=== PATIENT | female | born 1950 | race African-American/Black ===

== ENCOUNTER 2017-12-15 18:55 | Inpatient (IN) ==
[2017-12-15] MEDS ORDERED: SODIUM CHLORIDE 0.9% 500 ML IV STA (21:01)
[2017-12-15] MEDS ORDERED: PANTOPRAZOLE 40 MG VIAL IV STA (21:01)
[2017-12-15] MEDS ORDERED: ONDANSETRON 4 MG/2 ML VIAL IV STA (21:01)
[2017-12-15] MEDS ORDERED: ALUM/MAG/SIMETH/LIDO VISC 1:1 30 ML BOTTLE PO STA (21:01)
[2017-12-15] MEDS ORDERED: MORPHINE 4 MG/1 ML VIAL IV STA (21:01)
[2017-12-15 21:34] LABS: Basophils % 0.1 % (0.0-0.8); Eosinophils % 0.2 % (0.00-10.9); Hematocrit 34.3 VOL% (35.7-47.0); Hemoglobin 11.7 GM/DL (12.0-16.0); Immature Granulocytes % 0.5 %; Immature Granulocytes Absolute 0.04 #; Lymphocytes # 0.7 10*3/uL (1.4-4.0); Lymphocytes % 8.8 % (21.3-54.2); Mean Corpuscular HGB Conc 34.1 GM/DL (32-36); Mean Corpuscular Hemoglobin 31 PG (27-34); Mean Corpuscular Volume 91.7 FL (87-102); Mean Platelet Volume 11.2 FL (9.6-12.0); Monocytes # 0.5 10*3/uL (0.11-0.8); Monocytes % 6.3 % (1.7-12.7); Neutrophils # 7.1 10*3/uL (1.4-7.4); Neutrophils % 84.1 % (38.7-73.9); Platelet Count 113 T/CUMM (130-400); Red Blood Count 3.74 MC/CUMM (3.8-5.5); Red Cell Distribution Width 13.8 % (9.3-17.3); White Blood Count 8.4 T/CUMM (4-12)
[2017-12-15 21:53] LABS: Lactic Acid 0.9 MMOL/L (0.4-2.0)
[2017-12-15 21:56] LABS: Alanine Aminotransferase 419 U/L (13-56); Alkaline Phosphatase 318 U/L (45-117); Amylase 53 U/L (25-115); Aspartate Amino Transferase 189 U/L (0-37); Blood Urea Nitrogen 19 MG/DL (7-18); Calcium 8.9 MG/DL (8.5-10.1); Glucose 110 MG/DL (74-106); Osmolality,Calculated 281.4 MOS/KG (273-304); Potassium 2.7 MMOL/L (3.5-5.1); Sodium 140 MMOL/L (136-145); Total Protein 7.8 G/DL (6.4-8.3)
[2017-12-15] MEDS ORDERED: POTASSIUM CHLORIDE 20 MEQ TABLET PO STA (22:06)
[2017-12-15] MEDS ORDERED: MAGNESIUM SULF RIDER 2 GM in PREMIX 1 EACH IV STA (22:06)
[2017-12-15] MEDS ORDERED: ZALEPLON 5 MG CAPSULE PO PRN (23:21)
[2017-12-15] MEDS ORDERED: BISACODYL 5 MG TABLET PO PRN (23:21)
[2017-12-15] MEDS ORDERED: ACETAMINOPHEN 500 MG TABLET PO PRN (23:28)
[2017-12-15] MEDS ORDERED: POTASSIUM CHLORIDE 20 MEQ TABLET PO ONE (23:30)
[2017-12-16] MEDS: LACTATED RINGERS 1,000 ML IV SCH ×3 (02:09→21:57)
[2017-12-16 02:34] LABS: Basophils % 0.1 % (0.0-0.8); Bilirubin,Total 0.8 MG/DL (0.2-1.0); Calcium 8.4 MG/DL (8.5-10.1); Eosinophils # 0.1 10*3/uL (0.0-0.87); Hematocrit 34.4 VOL% (35.7-47.0); Hemoglobin 11.9 GM/DL (12.0-16.0); Immature Granulocytes % 1.2 %; Immature Granulocytes Absolute 0.09 #; Lymphocytes # 1.5 10*3/uL (1.4-4.0); Lymphocytes % 19.1 % (21.3-54.2); Mean Corpuscular HGB Conc 34.6 GM/DL (32-36); Mean Corpuscular Hemoglobin 31 PG (27-34); Mean Corpuscular Volume 90.5 FL (87-102); Mean Platelet Volume 11.6 FL (9.6-12.0); Monocytes # 0.6 10*3/uL (0.11-0.8); NRBC # 0.02 10*3/uL; Neutrophils # 5.4 10*3/uL (1.4-7.4); Neutrophils % 70.6 % (38.7-73.9); Osmolality,Calculated 279.4 MOS/KG (273-304); Platelet Count 118 T/CUMM (130-400); Potassium 3.2 MMOL/L (3.5-5.1); Red Cell Distribution Width 13.8 % (9.3-17.3); Risk Ratio 2.78; Total Protein 7.4 G/DL (6.4-8.3); VLDL CHOLESTEROL 7.4 MG/DL; White Blood Count 7.7 T/CUMM (4-12)
[2017-12-16] MEDS: HEPARIN 5,000 UNIT/1 ML VIAL SUBCUT SCH ×3 (02:37→17:15)
[2017-12-16 03:48] LABS: Hepatitis B Core Ab Result Negative (Negative)
[2017-12-16 03:50] LABS: Hepatitis A Ab IgM Quant 0.16 Index; Hepatitis A Ab IgM Result Negative (Negative); Hepatitis B Core IgM Result Negative (Negative); Hepatitis B Surface Ag Quant 0.14 Index; Hepatitis B Surface Ag Result Negative (Negative); Hepatitis C Virus Ab Quant 0.15 Index; Hepatitis C Virus Ab Result Negative (Negative)
[2017-12-16] MEDS ORDERED: ENOXAPARIN 40 MG/0.4 ML SYRINGE SUBCUT SCH (09:00)
[2017-12-16] MEDS: PANTOPRAZOLE 40 MG TABLET PO SCH (10:30)
[2017-12-16] MEDS: ESTRADIOL 1 MG TABLET PO SCH (10:30)
[2017-12-16] MEDS: POTASSIUM CHLORIDE 20 MEQ TABLET PO PRN ×2 (15:20→17:15)
[2017-12-17] MEDS: HEPARIN 5,000 UNIT/1 ML VIAL SUBCUT SCH ×3 (01:45→18:18)
[2017-12-17] MEDS ORDERED: cefOXitin 2,000 MG in SYRINGE 1 EACH IV ONE (07:24)
[2017-12-17] MEDS: LACTATED RINGERS 1,000 ML IV SCH ×2 (08:00→21:38)
[2017-12-17] MEDS ORDERED: TISSUE ADHESIVE 1 EACH APPLICATOR TOP ONE (08:35)
[2017-12-17] MEDS ORDERED: LIDOCAINE 1%/EPI INJ 20 ML VIAL ONE (08:35)
[2017-12-17] MEDS ORDERED: BUPIVACAINE MPF 0.25% 30 ML VIAL ONE (08:35)
[2017-12-17 09:24] LABS: Albumin 2.7 G/DL (3.4-5.0); Bilirubin,Direct 0.25 MG/DL (0.0-0.20); Bilirubin,Indirect 0.3 MG/DL (0.0-1.0); Bilirubin,Total 0.5 MG/DL (0.2-1.0); Calcium 8.2 MG/DL (8.5-10.1); Osmolality,Calculated 282.1 MOS/KG (273-304); Total Protein 6.7 G/DL (6.4-8.3)
[2017-12-17 10:10] LABS: Eosinophils # 0.2 10*3/uL (0.0-0.87); Eosinophils % 3.4 % (0.00-10.9); Hematocrit 33.3 VOL% (35.7-47.0); Hemoglobin 11.3 GM/DL (12.0-16.0); Immature Granulocytes % 0.9 %; Immature Granulocytes Absolute 0.04 #; Lymphocytes # 1.6 10*3/uL (1.4-4.0); Lymphocytes % 36.5 % (21.3-54.2); Mean Corpuscular HGB Conc 33.9 GM/DL (32-36); Mean Corpuscular Hemoglobin 32 PG (27-34); Mean Corpuscular Volume 92.8 FL (87-102); Mean Platelet Volume 12.1 FL (9.6-12.0); Monocytes # 0.5 10*3/uL (0.11-0.8); Monocytes % 10.3 % (1.7-12.7); Neutrophils # 2.2 10*3/uL (1.4-7.4); Neutrophils % 48.9 % (38.7-73.9); Platelet Count 101 T/CUMM (130-400); Red Blood Count 3.59 MC/CUMM (3.8-5.5); Red Cell Distribution Width 14.3 % (9.3-17.3); White Blood Count 4.5 T/CUMM (4-12)
[2017-12-17] MEDS ORDERED: ONDANSETRON 4 MG/2 ML VIAL IV PRN (11:28)
[2017-12-17] MEDS ORDERED: LACTATED RINGERS 1,000 ML IV SCH (11:30)
[2017-12-17] MEDS ORDERED: MORPHINE 10 MG/1 ML VIAL ONE (11:34)
[2017-12-17] MEDS ORDERED: ONDANSETRON 4 MG/2 ML VIAL ONE ×2 (11:34→12:33)
[2017-12-17] MEDS: MORPHINE 10 MG/1 ML VIAL IV PRN ×3 (11:38→11:54)
[2017-12-17] MEDS ORDERED: PROPOFOL 200 MG/20 ML VIAL IV ONE (12:32)
[2017-12-17] MEDS ORDERED: SEVOFLURANE 1 UNIT/15 MINUTE INH ONE (12:33)
[2017-12-17] MEDS ORDERED: GLYCOPYRROLATE 0.4 MG/2 ML VIAL ONE (12:33)
[2017-12-17] MEDS ORDERED: fentaNYL 100 MCG/2 ML VIAL ONE ×2 (12:33→12:34)
[2017-12-17] MEDS ORDERED: ROCURONIUM 100 MG/10 ML VIAL IV ONE (12:33)
[2017-12-17] MEDS ORDERED: MIDAZOLAM 2 MG/2 ML VIAL ONE (12:33)
[2017-12-17] MEDS ORDERED: NEOSTIGMINE 10 MG/10 ML VIAL ONE (12:33)
[2017-12-17] MEDS ORDERED: HYDROCORTISONE 100 MG VIAL ONE (12:33)
[2017-12-17] MEDS ORDERED: LACTATED RINGERS 1,000 ML IV ONE (12:34)
[2017-12-17] MEDS: PANTOPRAZOLE 40 MG TABLET PO SCH (14:19)
[2017-12-17] MEDS: ESTRADIOL 1 MG TABLET PO SCH (14:19)
[2017-12-17] MEDS: MORPHINE 4 MG/1 ML VIAL IV PRN (16:26)
[2017-12-17] MEDS ORDERED: DOCUSATE SODIUM 100 MG CAPSULE PO PRN (20:10)
[2017-12-18] MEDS: HEPARIN 5,000 UNIT/1 ML VIAL SUBCUT SCH ×3 (01:23→17:20)
[2017-12-18] MEDS: LACTATED RINGERS 1,000 ML IV SCH ×2 (03:38→14:24)
[2017-12-18 06:10] LABS: Basophils % 0.2 % (0.0-0.8); Eosinophils # 0.1 10*3/uL (0.0-0.87); Eosinophils % 0.9 % (0.00-10.9); Hematocrit 32.9 VOL% (35.7-47.0); Hemoglobin 11.6 GM/DL (12.0-16.0); Immature Granulocytes % 0.6 %; Immature Granulocytes Absolute 0.04 #; Lymphocytes # 1.6 10*3/uL (1.4-4.0); Lymphocytes % 24.5 % (21.3-54.2); Mean Corpuscular HGB Conc 35.3 GM/DL (32-36); Mean Corpuscular Hemoglobin 32 PG (27-34); Mean Corpuscular Volume 91.4 FL (87-102); Mean Platelet Volume 12.1 FL (9.6-12.0); Monocytes # 0.7 10*3/uL (0.11-0.8); Monocytes % 10.2 % (1.7-12.7); Neutrophils # 4.2 10*3/uL (1.4-7.4); Neutrophils % 63.6 % (38.7-73.9); Platelet Count 115 T/CUMM (130-400); Red Cell Distribution Width 14.2 % (9.3-17.3); White Blood Count 6.6 T/CUMM (4-12)
[2017-12-18 06:23] LABS: PT Patient Result 10.1 SECS; Partial Thromboplastin Time 31.1 SECS (0-40)
[2017-12-18 06:25] LABS: Albumin 2.6 G/DL (3.4-5.0); Albumin 2.9 G/DL (3.4-5.0); Bilirubin,Direct 1.01 MG/DL (0.0-0.20); Bilirubin,Indirect 0.7 MG/DL (0.0-1.0); Bilirubin,Total 1.6 MG/DL (0.2-1.0); Bilirubin,Total 1.7 MG/DL (0.2-1.0); Calcium 8.2 MG/DL (8.5-10.1); Calcium 8.5 MG/DL (8.5-10.1); Potassium 3.1 MMOL/L (3.5-5.1); Potassium 3.2 MMOL/L (3.5-5.1); Total Protein 7.2 G/DL (6.4-8.3)
[2017-12-18] MEDS: ONDANSETRON 4 MG/2 ML VIAL IV PRN ×2 (06:29→12:12)
[2017-12-18] MEDS ORDERED: PROMETHAZINE 25 MG TABLET PO PRN (09:25)
[2017-12-18] MEDS ORDERED: PROMETHAZINE 25 MG/1 ML VIAL IM PRN (09:25)
[2017-12-18] MEDS ORDERED: POTASSIUM CHLORIDE 20 MEQ TABLET PO ONE (10:10)
[2017-12-18] MEDS: PANTOPRAZOLE 40 MG TABLET PO SCH (12:10)
[2017-12-18] MEDS: ESTRADIOL 1 MG TABLET PO SCH (12:10)
[2017-12-18] MEDS: MORPHINE 4 MG/1 ML VIAL IV PRN ×2 (12:11→17:20)
[2017-12-18] MEDS: TRIAMTERENE/HCTZ 37.5-25 MG CAPSULE PO SCH (12:11)
[2017-12-19] MEDS: LACTATED RINGERS 1,000 ML IV SCH ×4 (01:40→23:20)
[2017-12-19 07:28] LABS: Basophils % 0.2 % (0.0-0.8); Eosinophils # 0.1 10*3/uL (0.0-0.87); Eosinophils % 1.9 % (0.00-10.9); Hematocrit 32.8 VOL% (35.7-47.0); Hemoglobin 11.2 GM/DL (12.0-16.0); Immature Granulocytes % 1.3 %; Immature Granulocytes Absolute 0.07 #; Lymphocytes # 1.1 10*3/uL (1.4-4.0); Mean Corpuscular HGB Conc 34.1 GM/DL (32-36); Mean Corpuscular Hemoglobin 31 PG (27-34); Mean Corpuscular Volume 91.6 FL (87-102); Mean Platelet Volume 11.5 FL (9.6-12.0); Monocytes # 0.6 10*3/uL (0.11-0.8); Monocytes % 10.7 % (1.7-12.7); Neutrophils # 3.5 10*3/uL (1.4-7.4); Neutrophils % 65.9 % (38.7-73.9); Platelet Count 114 T/CUMM (130-400); Red Blood Count 3.58 MC/CUMM (3.8-5.5); Red Cell Distribution Width 14.6 % (9.3-17.3); White Blood Count 5.3 T/CUMM (4-12)
[2017-12-19 08:09] LABS: Albumin 2.7 G/DL (3.4-5.0); Bilirubin,Total 4.3 MG/DL (0.2-1.0); Calcium 8.1 MG/DL (8.5-10.1); Osmolality,Calculated 272.7 MOS/KG (273-304); Potassium 3.8 MMOL/L (3.5-5.1); Total Protein 6.9 G/DL (6.4-8.3)
[2017-12-19] MEDS ORDERED: INDOMETHACIN SUPP 50 MG SUPP RECTAL ONE (08:47)
[2017-12-19 09:17] LABS: PT Patient Result 10.3 SECS
[2017-12-19] MEDS ORDERED: SEVOFLURANE 1 UNIT/15 MINUTE INH ONE (12:34)
[2017-12-19] MEDS ORDERED: PROPOFOL 200 MG/20 ML VIAL IV ONE (12:49)
[2017-12-19] MEDS ORDERED: ALBUTEROL INHALER 8 GM INH ONE (12:49)
[2017-12-19] MEDS ORDERED: LIDOCAINE 100 MG/5 ML SYRINGE ONE (12:49)
[2017-12-19] MEDS ORDERED: SUCCINYLCHOLINE 200 MG/10 ML VIAL ONE (12:49)
[2017-12-19] MEDS: ESTRADIOL 1 MG TABLET PO SCH (13:39)
[2017-12-19] MEDS: TRIAMTERENE/HCTZ 37.5-25 MG CAPSULE PO SCH (13:39)
[2017-12-19] MEDS: PANTOPRAZOLE 40 MG TABLET PO SCH (13:40)
[2017-12-19] MEDS: POTASSIUM CHLORIDE 20 MEQ TABLET PO PRN (13:40)
[2017-12-20 07:20] VITALS: BP 99/56
[2017-12-20 08:41] LABS: Albumin 2.2 G/DL (3.4-5.0); Bilirubin,Total 1.1 MG/DL (0.2-1.0); Calcium 7.2 MG/DL (8.5-10.1); Osmolality,Calculated 280.3 MOS/KG (273-304); Potassium 3.8 MMOL/L (3.5-5.1); Total Protein 5.9 G/DL (6.4-8.3)
[2017-12-20] MEDS: LACTATED RINGERS 1,000 ML IV SCH (08:47)
[2017-12-20] MEDS: TRIAMTERENE/HCTZ 37.5-25 MG CAPSULE PO SCH (08:47)
[2017-12-20] MEDS: PANTOPRAZOLE 40 MG TABLET PO SCH (08:47)
[2017-12-20] MEDS: ESTRADIOL 1 MG TABLET PO SCH (08:47)
[2017-12-20 09:32] LABS: Basophils % 0.1 % (0.0-0.8); Eosinophils # 0.2 10*3/uL (0.0-0.87); Eosinophils % 1.5 % (0.00-10.9); Hematocrit 25.8 VOL% (35.7-47.0); Immature Granulocytes % 1.4 %; Immature Granulocytes Absolute 0.15 #; Lymphocytes # 1.1 10*3/uL (1.4-4.0); Mean Corpuscular HGB Conc 34.1 GM/DL (32-36); Mean Corpuscular Hemoglobin 32 PG (27-34); Mean Corpuscular Volume 93.1 FL (87-102); Monocytes # 0.6 10*3/uL (0.11-0.8); NRBC # 0.02 10*3/uL; Neutrophils # 8.9 10*3/uL (1.4-7.4); Platelet Count 65 T/CUMM (130-400); Red Blood Count 2.77 MC/CUMM (3.8-5.5); Red Cell Distribution Width 14.7 % (9.3-17.3); White Blood Count 10.9 T/CUMM (4-12)
[2017-12-20 09:41] LABS: Hemoglobin 8.8 GM/DL (12.0-16.0)
[2017-12-22] MEDS ORDERED: DEXAMETHASONE 4 MG TABLET PO SCH (09:00)
== END 2017-12-20 11:43 | disposition home or self-care (01) | DRG 418 ==
LOC: N.ED 18:55 → N.EDINP 23:21 → SUATTDRO 23:21 → N.5E 12-16 01:09
PROVIDERS: ADMIT Internal Medicine; ATTEND Internal Medicine
PROC: LAPCHOL (2017-12-17 10:30)
PROC: ERCPWSP (ICD-10-PCS; 2017-12-19 10:30)

== ENCOUNTER 2020-07-08 08:41 | Inpatient (IN) ==
[2020-07-08 09:11] LABS: Basophils % 0.2 % (0.0-0.8); Eosinophils % 0.1 % (0.00-10.9); Hematocrit 32.6 VOL% (35.7-47.0); Hemoglobin 10.9 GM/DL (12.0-16.0); Immature Granulocytes % 1.8 %; Immature Granulocytes Absolute 0.22 #; Lymphocytes # 0.9 10*3/uL (1.4-4.0); Lymphocytes % 7.2 % (21.3-54.2); Mean Corpuscular HGB Conc 33.4 GM/DL (32-36); Mean Corpuscular Volume 93.7 FL (87-102); Mean Platelet Volume 11.1 FL (9.6-12.0); Monocytes % 8.2 % (1.7-12.7); Neutrophils % 82.5 % (38.7-73.9); Red Blood Count 3.48 MC/CUMM (3.8-5.5); Red Cell Distribution Width 14.3 % (9.3-17.3); White Blood Count 12.5 T/CUMM (4-12)
[2020-07-08 09:12] LABS: Platelet Count 88 T/CUMM (130-400)
[2020-07-08 09:31] LABS: Hypochromasia 1+; Microcytosis 1+; Platelet Estimate Decreased
[2020-07-08 09:32] LABS: Albumin 2.6 G/DL (3.4-5.0); Bilirubin,Total 0.4 MG/DL (0.2-1.0); Osmolality,Calculated 292.1 MOS/KG (273-304); Total Protein 6.7 G/DL (6.4-8.3)
[2020-07-08] MEDS ORDERED: SODIUM CHLORIDE 0.9% 1,000 ML IV STA (09:41)
[2020-07-08] MEDS ORDERED: POTASSIUM CHLORIDE 20 MEQ TABLET PO STA (10:06)
[2020-07-08 11:16] LABS: Amorphous Crystals,Urine Occasional /HPF (Few); Bilirubin,Urine Negative (Negative); Blood, Urine Moderate mg/dL (Negative); Glucose,Urine (UA) Negative (Negative); Ketones,Urine Negative (Negative); Mucus,Urine Occasional /LPF (Occasional); Nitrite,Urine Negative (Negative); Protein,Urine 100 MG/DL; RBC,Urine 3 /HPF (0-4); Squamous Epithelial Cell,Urine Occasional /HPF (0-10); Urine Appearance CLOUDY (Clear); Urine Color Amber (Yellow); Urine Specific Gravity 1.018 (1.001-1.035); WBC,Urine <1 /HPF (0-6)
[2020-07-08] MEDS ORDERED: GLUCAGON 1 MG VIAL IM PRN (13:46)
[2020-07-08] MEDS ORDERED: DEXTROSE 50% 25 GM/50 ML VIAL IV PRN (13:46)
[2020-07-08] MEDS ORDERED: ONDANSETRON 4 MG/2 ML VIAL IV PRN (13:46)
[2020-07-08] MEDS ORDERED: ACETAMINOPHEN 325 MG TABLET PO PRN (13:46)
[2020-07-08] MEDS ORDERED: MAGNESIUM SULF RIDER 4 GM in PREMIX 1 EACH IV PRN (13:56)
[2020-07-08] MEDS: SODIUM CHLORIDE 0.9% 1,000 ML IV SCH (14:55)
[2020-07-08] MEDS ORDERED: NITROGLYCERIN SL 0.4 MG TABLET SL PRN (18:02)
[2020-07-08] MEDS ORDERED: MORPHINE 4 MG/1 ML VIAL IV PRN (18:02)
[2020-07-08] MEDS ORDERED: ASPIRIN 325 MG TABLET PO ONE (18:02)
[2020-07-08] MEDS ORDERED: ENOXAPARIN 100 MG/ML SYRINGE SUBCUT ONE (18:15)
[2020-07-08] MEDS: POTASSIUM CHLORIDE 20 MEQ TABLET PO PRN (23:39)
[2020-07-08] MEDS: MAGNESIUM SULF RIDER 2 GM in PREMIX 1 EACH IV PRN (23:39)
[2020-07-09] MEDS: POTASSIUM CHLORIDE 20 MEQ TABLET PO PRN (01:55)
[2020-07-09 05:38] LABS: Basophils % 0.2 % (0.0-0.8); Eosinophils # 0.1 10*3/uL (0.0-0.87); Eosinophils % 0.5 % (0.00-10.9); Hematocrit 31.5 VOL% (35.7-47.0); Hemoglobin 10.3 GM/DL (12.0-16.0); Immature Granulocytes % 1.3 %; Immature Granulocytes Absolute 0.17 #; Lymphocytes # 1.9 10*3/uL (1.4-4.0); Lymphocytes % 14.1 % (21.3-54.2); Mean Corpuscular HGB Conc 32.7 GM/DL (32-36); Mean Corpuscular Volume 96.6 FL (87-102); Mean Platelet Volume 11.1 FL (9.6-12.0); Neutrophils % 74.9 % (38.7-73.9); Red Blood Count 3.26 MC/CUMM (3.8-5.5); Red Cell Distribution Width 14.7 % (9.3-17.3); White Blood Count 13.2 T/CUMM (4-12)
[2020-07-09 05:45] LABS: Platelet Count 67 T/CUMM (130-400)
[2020-07-09 05:55] LABS: Calcium 7.8 MG/DL (8.5-10.1); Osmolality,Calculated 288.1 MOS/KG (273-304); Risk Ratio 4.12; VLDL CHOLESTEROL 13.6 MG/DL
[2020-07-09 06:04] LABS: Hypochromasia 1+; Microcytosis 1+; Platelet Estimate Decreased
[2020-07-09] MEDS: SODIUM CHLORIDE 0.9% 1,000 ML IV SCH ×2 (07:53→12:33)
[2020-07-09] MEDS ORDERED: PANTOPRAZOLE 40 MG TABLET PO SCH (09:00)
[2020-07-09] MEDS ORDERED: POTASSIUM CHLORIDE 20 MEQ TABLET PO ONE (12:00)
[2020-07-09] MEDS: METOPROLOL TARTRATE 25 MG TABLET PO SCH ×2 (13:04→21:15)
[2020-07-09] MEDS: SIMVASTATIN 20 MG TABLET PO SCH (21:14)
[2020-07-09] MEDS: APIXABAN 5 MG TABLET PO SCH (21:14)
[2020-07-10] MEDS: SODIUM CHLORIDE 0.9% 1,000 ML IV SCH ×2 (01:57→16:41)
[2020-07-10 05:51] LABS: Basophils % 0.1 % (0.0-0.8); Eosinophils % 0.3 % (0.00-10.9); Hematocrit 28.3 VOL% (35.7-47.0); Hemoglobin 9.3 GM/DL (12.0-16.0); Immature Granulocytes % 1.1 %; Immature Granulocytes Absolute 0.17 #; Lymphocytes # 1.4 10*3/uL (1.4-4.0); Lymphocytes % 9.4 % (21.3-54.2); Mean Corpuscular HGB Conc 32.9 GM/DL (32-36); Mean Corpuscular Volume 95.6 FL (87-102); Mean Platelet Volume 11.4 FL (9.6-12.0); Monocytes % 8.3 % (1.7-12.7); Neutrophils % 80.8 % (38.7-73.9); Platelet Count 59 T/CUMM (130-400); Red Blood Count 2.96 MC/CUMM (3.8-5.5); Red Cell Distribution Width 14.8 % (9.3-17.3); White Blood Count 15.2 T/CUMM (4-12)
[2020-07-10 06:11] LABS: Calcium 7.8 MG/DL (8.5-10.1); Osmolality,Calculated 288.8 MOS/KG (273-304)
[2020-07-10 06:14] LABS: Calcium 7.7 MG/DL (8.5-10.1); Osmolality,Calculated 285.1 MOS/KG (273-304)
[2020-07-10 07:32] LABS: Hypochromasia 1+; Microcytosis 1+; Platelet Estimate Decreased
[2020-07-10] MEDS: APIXABAN 5 MG TABLET PO SCH ×3 (08:24→21:22)
[2020-07-10] MEDS: ESTRADIOL 1 MG TABLET PO SCH (08:24)
[2020-07-10] MEDS: METOPROLOL TARTRATE 25 MG TABLET PO SCH ×2 (08:25→21:22)
[2020-07-10] MEDS: SIMVASTATIN 20 MG TABLET PO SCH (21:23)
[2020-07-11 05:48] LABS: Basophils % 0.1 % (0.0-0.8); Eosinophils # 0.1 10*3/uL (0.0-0.87); Eosinophils % 0.5 % (0.00-10.9); Hematocrit 28.2 VOL% (35.7-47.0); Hemoglobin 9.3 GM/DL (12.0-16.0); Immature Granulocytes % 1.1 %; Immature Granulocytes Absolute 0.13 #; Lymphocytes # 1.5 10*3/uL (1.4-4.0); Mean Corpuscular Volume 95.9 FL (87-102); Mean Platelet Volume 11.9 FL (9.6-12.0); Monocytes % 9.1 % (1.7-12.7); Neutrophils % 76.2 % (38.7-73.9); Platelet Count 53 T/CUMM (130-400); Red Blood Count 2.94 MC/CUMM (3.8-5.5); Red Cell Distribution Width 14.3 % (9.3-17.3); White Blood Count 11.9 T/CUMM (4-12)
[2020-07-11 06:09] LABS: Calcium 7.8 MG/DL (8.5-10.1); Osmolality,Calculated 285.8 MOS/KG (273-304)
[2020-07-11] MEDS: METOPROLOL TARTRATE 25 MG TABLET PO SCH ×2 (08:42→20:10)
[2020-07-11] MEDS: ESTRADIOL 1 MG TABLET PO SCH (08:42)
[2020-07-11] MEDS: APIXABAN 5 MG TABLET PO SCH ×2 (08:42→20:10)
[2020-07-11] MEDS: SODIUM CHLORIDE 0.9% 1,000 ML IV SCH ×2 (18:34→19:06)
[2020-07-11] MEDS: SIMVASTATIN 20 MG TABLET PO SCH (20:10)
[2020-07-12 06:34] LABS: Basophils % 0.2 % (0.0-0.8); Eosinophils # 0.1 10*3/uL (0.0-0.87); Eosinophils % 0.8 % (0.00-10.9); Hematocrit 27.5 VOL% (35.7-47.0); Hemoglobin 9.1 GM/DL (12.0-16.0); Immature Granulocytes % 1.4 %; Immature Granulocytes Absolute 0.15 #; Lymphocytes # 1.4 10*3/uL (1.4-4.0); Lymphocytes % 12.9 % (21.3-54.2); Mean Corpuscular HGB Conc 33.1 GM/DL (32-36); Mean Corpuscular Volume 94.8 FL (87-102); Mean Platelet Volume 11.6 FL (9.6-12.0); Monocytes % 7.9 % (1.7-12.7); Neutrophils % 76.8 % (38.7-73.9); Platelet Count 71 T/CUMM (130-400); Red Cell Distribution Width 14.1 % (9.3-17.3); White Blood Count 11.1 T/CUMM (4-12)
[2020-07-12 06:50] LABS: Calcium 7.6 MG/DL (8.5-10.1)
[2020-07-12] MEDS: SODIUM CHLORIDE 0.9% 1,000 ML IV SCH (07:06)
[2020-07-12 07:08] LABS: Anisocytosis 2+; Burr Cells Few; Ovalocytes Few; Platelet Estimate Decreased
[2020-07-12] MEDS: POTASSIUM CHLORIDE 20 MEQ TABLET PO PRN ×4 (08:35→15:10)
[2020-07-12] MEDS: APIXABAN 5 MG TABLET PO SCH ×2 (08:36→20:30)
[2020-07-12] MEDS: METOPROLOL TARTRATE 25 MG TABLET PO SCH ×2 (08:36→20:30)
[2020-07-12] MEDS: MAGNESIUM SULF RIDER 2 GM in PREMIX 1 EACH IV PRN (08:37)
[2020-07-12] MEDS: ESTRADIOL 1 MG TABLET PO SCH (08:37)
[2020-07-12] MEDS: SIMVASTATIN 20 MG TABLET PO SCH (20:30)
[2020-07-13] MEDS: SODIUM CHLORIDE 0.9% 1,000 ML IV SCH ×2 (00:15→12:44)
[2020-07-13 05:46] LABS: Basophils % 0.2 % (0.0-0.8); Eosinophils # 0.1 10*3/uL (0.0-0.87); Eosinophils % 1.1 % (0.00-10.9); Hematocrit 27.5 VOL% (35.7-47.0); Hemoglobin 9.1 GM/DL (12.0-16.0); Immature Granulocytes % 1.2 %; Lymphocytes # 1.2 10*3/uL (1.4-4.0); Lymphocytes % 14.5 % (21.3-54.2); Mean Corpuscular HGB Conc 33.1 GM/DL (32-36); Mean Corpuscular Volume 95.2 FL (87-102); Mean Platelet Volume 11.9 FL (9.6-12.0); Monocytes % 9.4 % (1.7-12.7); NRBC # 0.02 10*3/uL; Neutrophils % 73.6 % (38.7-73.9); Red Blood Count 2.89 MC/CUMM (3.8-5.5); Red Cell Distribution Width 14.5 % (9.3-17.3); White Blood Count 8.2 T/CUMM (4-12)
[2020-07-13 05:53] LABS: Platelet Count 86 T/CUMM (130-400)
[2020-07-13 05:59] LABS: Osmolality,Calculated 286.7 MOS/KG (273-304)
[2020-07-13 07:54] LABS: Anisocytosis 1+; Burr Cells Few; Platelet Estimate Decreased; Poikilocytosis 1+
[2020-07-13 07:55] LABS: Macrocytosis Slight
[2020-07-13] MEDS: METOPROLOL TARTRATE 25 MG TABLET PO SCH ×2 (10:27→21:19)
[2020-07-13] MEDS: APIXABAN 5 MG TABLET PO SCH ×2 (10:27→21:19)
[2020-07-13] MEDS: ESTRADIOL 1 MG TABLET PO SCH (10:27)
[2020-07-13] MEDS: SIMVASTATIN 20 MG TABLET PO SCH (21:19)
[2020-07-14] MEDS: SODIUM CHLORIDE 0.9% 1,000 ML IV SCH ×2 (02:59→16:34)
[2020-07-14 05:05] LABS: Basophils % 0.1 % (0.0-0.8); Eosinophils # 0.2 10*3/uL (0.0-0.87); Eosinophils % 1.8 % (0.00-10.9); Hematocrit 27.6 VOL% (35.7-47.0); Hemoglobin 9.3 GM/DL (12.0-16.0); Immature Granulocytes % 1.4 %; Immature Granulocytes Absolute 0.12 #; Lymphocytes # 1.6 10*3/uL (1.4-4.0); Lymphocytes % 18.6 % (21.3-54.2); Mean Corpuscular HGB Conc 33.7 GM/DL (32-36); Mean Corpuscular Volume 94.5 FL (87-102); Mean Platelet Volume 11.3 FL (9.6-12.0); Monocytes % 8.2 % (1.7-12.7); NRBC # 0.02 10*3/uL; Neutrophils % 69.9 % (38.7-73.9); Platelet Count 118 T/CUMM (130-400); Red Blood Count 2.92 MC/CUMM (3.8-5.5); Red Cell Distribution Width 14.6 % (9.3-17.3); White Blood Count 8.3 T/CUMM (4-12)
[2020-07-14 05:29] LABS: Calcium 8.3 MG/DL (8.5-10.1); Osmolality,Calculated 284.8 MOS/KG (273-304)
[2020-07-14] MEDS: APIXABAN 5 MG TABLET PO SCH ×2 (09:43→21:06)
[2020-07-14] MEDS: ESTRADIOL 1 MG TABLET PO SCH (09:43)
[2020-07-14] MEDS: METOPROLOL TARTRATE 25 MG TABLET PO SCH ×2 (09:43→21:06)
[2020-07-14] MEDS: POTASSIUM CHLORIDE 20 MEQ TABLET PO PRN ×2 (11:48→15:10)
[2020-07-14] MEDS: LEVOFLOXACIN INJ 500 MG in PREMIX 1 EACH IV SCH (15:10)
[2020-07-14] MEDS: FUROSEMIDE 40 MG/4 ML VIAL IV SCH (15:10)
[2020-07-14] MEDS: SIMVASTATIN 20 MG TABLET PO SCH (21:06)
[2020-07-15 06:11] LABS: Basophils % 0.3 % (0.0-0.8); Eosinophils # 0.1 10*3/uL (0.0-0.87); Eosinophils % 1.2 % (0.00-10.9); Hematocrit 27.1 VOL% (35.7-47.0); Immature Granulocytes % 1.6 %; Immature Granulocytes Absolute 0.14 #; Lymphocytes % 22.5 % (21.3-54.2); Mean Corpuscular HGB Conc 33.2 GM/DL (32-36); Mean Corpuscular Volume 94.8 FL (87-102); Mean Platelet Volume 11.8 FL (9.6-12.0); Monocytes % 9.1 % (1.7-12.7); Neutrophils % 65.3 % (38.7-73.9); Platelet Count 124 T/CUMM (130-400); Red Blood Count 2.86 MC/CUMM (3.8-5.5); Red Cell Distribution Width 14.6 % (9.3-17.3); White Blood Count 8.9 T/CUMM (4-12)
[2020-07-15 06:43] LABS: Calcium 8.2 MG/DL (8.5-10.1); Osmolality,Calculated 286.7 MOS/KG (273-304)
[2020-07-15] MEDS ORDERED: POTASSIUM CHLORIDE 20 MEQ PACK PO ONE (08:37)
[2020-07-15] MEDS ORDERED: POTASSIUM CHLORIDE 20 MEQ TABLET PO ONE (09:00)
[2020-07-15] MEDS: APIXABAN 5 MG TABLET PO SCH (09:10)
[2020-07-15] MEDS: ESTRADIOL 1 MG TABLET PO SCH (09:10)
[2020-07-15] MEDS: FUROSEMIDE 40 MG/4 ML VIAL IV SCH (09:10)
[2020-07-15] MEDS: METOPROLOL TARTRATE 25 MG TABLET PO SCH (09:11)
[2020-07-15 12:18] VITALS: BP 115/66
[2020-07-15] MEDS: LEVOFLOXACIN INJ 500 MG in PREMIX 1 EACH IV SCH (16:10)
[2020-07-17] MEDS ORDERED: APIXABAN 5 MG TABLET PO SCH (09:00)
== END 2020-07-15 15:34 | disposition home health service (06) | DRG 175 ==
LOC: EDUNIT# → N.ED 08:41 → SUATTDRO 13:33 → N.EDINP 13:33 → N.5E 15:06
PROVIDERS: ADMIT Internal Medicine; ATTEND Internal Medicine

== ENCOUNTER 2020-12-04 16:09 | Observation (INO) ==
[2020-12-04] MEDS ORDERED: SODIUM CHLORIDE 0.9% 1,000 ML IV STA (16:36)
[2020-12-04 16:57] LABS: Basophils % 0.2 % (0.0-0.8); Eosinophils % 0.3 % (0.00-10.9); Hematocrit 34.7 VOL% (35.7-47.0); Hemoglobin 11.5 GM/DL (12.0-16.0); Immature Granulocytes % 8.5 %; Immature Granulocytes Absolute 1.23 #; Lymphocytes # 0.3 10*3/uL (1.4-4.0); Lymphocytes % 1.8 % (21.3-54.2); Mean Corpuscular HGB Conc 33.1 GM/DL (32-36); Mean Corpuscular Volume 89.4 FL (87-102); Mean Platelet Volume 12.4 FL (9.6-12.0); Monocytes % 9.9 % (1.7-12.7); Neutrophils % 79.3 % (38.7-73.9); Platelet Count 161 T/CUMM (130-400); Red Blood Count 3.88 MC/CUMM (3.8-5.5); White Blood Count 14.5 T/CUMM (4-12)
[2020-12-04 17:13] LABS: Bilirubin,Total 0.4 MG/DL (0.2-1.0); Osmolality,Calculated 283.4 MOS/KG (273-304); Potassium 2.9 MMOL/L (3.5-5.1); Total Protein 7.1 G/DL (6.4-8.2)
[2020-12-04] MEDS ORDERED: POTASSIUM CHLORIDE 20 MEQ TABLET PO STA (17:19)
[2020-12-04] MEDS ORDERED: GLUCAGON 1 MG VIAL IM PRN ×2 (17:21→17:57)
[2020-12-04] MEDS ORDERED: DEXTROSE 50% 25 GM/50 ML VIAL IV PRN ×2 (17:21→17:57)
[2020-12-04 17:30] LABS: Band Neutrophils 2 % (0-10); Lymphocytes 1 % (20-55); Segmented Neutrophils 88 % (50-85); Total Cells Counted 100
[2020-12-04] MEDS ORDERED: ZALEPLON 5 MG CAPSULE PO PRN (17:57)
[2020-12-04] MEDS ORDERED: ONDANSETRON 4 MG/2 ML VIAL IV PRN (17:57)
[2020-12-04] MEDS ORDERED: hydrALAZINE 20 MG/1 ML VIAL IV PRN (17:57)
[2020-12-04] MEDS ORDERED: diphenhydrAMINE CAP 25 MG CAPSULE PO PRN (17:57)
[2020-12-04] MEDS ORDERED: NICOTINE 21 MG/24 HR PATCH TRANSDERM PRN (17:57)
[2020-12-04] MEDS ORDERED: guaiFENesin/DM ER 600-30 MG TABLET PO PRN (17:57)
[2020-12-04] MEDS ORDERED: DOCUSATE SODIUM 100 MG CAPSULE PO PRN (17:57)
[2020-12-04] MEDS ORDERED: ACETAMINOPHEN 325 MG TABLET PO PRN (17:57)
[2020-12-04] MEDS ORDERED: POTASSIUM CHLORIDE RIDER 10 MEQ in PREMIX 1 EACH IV PRN (18:00)
[2020-12-04] MEDS ORDERED: HEPARIN 5,000 UNIT/1 ML VIAL SUBCUT SCH (18:00)
[2020-12-04] MEDS ORDERED: POTASSIUM CHLORIDE 20 MEQ TABLET PO ONE (18:01)
[2020-12-04] MEDS ORDERED: MAGNESIUM SULF RIDER 2 GM/50 ML PREMIX IV PRN (21:05)
[2020-12-05] MEDS: APIXABAN 5 MG TABLET PO SCH ×3 (00:19→22:37)
[2020-12-05] MEDS: METOPROLOL TARTRATE 25 MG TABLET PO SCH ×3 (00:19→22:37)
[2020-12-05] MEDS: POTASSIUM CHLORIDE INJ 40 MEQ in SODIUM CHLORIDE 0.45% 1,000 ML IV SCH ×3 (00:24→22:38)
[2020-12-05 05:32] LABS: Basophils % 0.2 % (0.0-0.8); Eosinophils # 0.1 10*3/uL (0.0-0.87); Eosinophils % 0.4 % (0.00-10.9); Hematocrit 33.1 VOL% (35.7-47.0); Hemoglobin 10.3 GM/DL (12.0-16.0); Immature Granulocytes % 6.4 %; Immature Granulocytes Absolute 0.88 #; Lymphocytes # 0.5 10*3/uL (1.4-4.0); Lymphocytes % 3.4 % (21.3-54.2); Mean Corpuscular HGB Conc 31.1 GM/DL (32-36); Mean Corpuscular Volume 92.5 FL (87-102); Mean Platelet Volume 12.4 FL (9.6-12.0); Monocytes % 16.9 % (1.7-12.7); NRBC # 0.03 10*3/uL; Neutrophils % 72.7 % (38.7-73.9); Platelet Count 152 T/CUMM (130-400); Red Blood Count 3.58 MC/CUMM (3.8-5.5); Red Cell Distribution Width 15.2 % (9.3-17.3); White Blood Count 13.7 T/CUMM (4-12)
[2020-12-05 05:58] LABS: Calcium 8.4 MG/DL (8.5-10.1); Osmolality,Calculated 288.1 MOS/KG (273-304); Potassium 4.2 MMOL/L (3.5-5.1)
[2020-12-05 06:41] LABS: Band Neutrophils 4 % (0-10); Lymphocytes 3 % (20-55); Metamyelocytes 3 %; Segmented Neutrophils 82 % (50-85); Total Cells Counted 100
[2020-12-05 06:42] LABS: Elliptocytes Few; Ovalocytes Few; Platelet Estimate Adequate
[2020-12-05] MEDS: PANTOPRAZOLE 40 MG TABLET PO SCH (09:01)
[2020-12-06] MEDS: POTASSIUM CHLORIDE INJ 40 MEQ in SODIUM CHLORIDE 0.45% 1,000 ML IV SCH (05:45)
[2020-12-06 06:30] LABS: Basophils % 0.2 % (0.0-0.8); Eosinophils # 0.3 10*3/uL (0.0-0.87); Hematocrit 31.5 VOL% (35.7-47.0); Hemoglobin 10.1 GM/DL (12.0-16.0); Immature Granulocytes % 2.2 %; Immature Granulocytes Absolute 0.11 #; Lymphocytes # 0.4 10*3/uL (1.4-4.0); Lymphocytes % 7.3 % (21.3-54.2); Mean Corpuscular HGB Conc 32.1 GM/DL (32-36); Mean Corpuscular Volume 92.1 FL (87-102); Mean Platelet Volume 12.4 FL (9.6-12.0); Monocytes % 25.2 % (1.7-12.7); Neutrophils % 59.1 % (38.7-73.9); Platelet Count 126 T/CUMM (130-400); Red Blood Count 3.42 MC/CUMM (3.8-5.5); Red Cell Distribution Width 15.2 % (9.3-17.3)
[2020-12-06 06:47] LABS: Calcium 7.6 MG/DL (8.5-10.1); Osmolality,Calculated 283.3 MOS/KG (273-304); Potassium 4.2 MMOL/L (3.5-5.1)
[2020-12-06 07:12] LABS: Eosinophils 3 % (0-10); Lymphocytes 7 % (20-55); Metamyelocytes 1 %; Polychromasia Slight; Segmented Neutrophils 71 % (50-85); Total Cells Counted 100
[2020-12-06 07:13] LABS: Platelet Estimate Adequate
[2020-12-06 07:14] LABS: Elliptocytes Few
[2020-12-06] MEDS ORDERED: MAGNESIUM SULF RIDER 4 GM/100 ML PREMIX IV PRN (07:33)
[2020-12-06] MEDS ORDERED: MAGNESIUM SULF RIDER 2 GM/50 ML PREMIX IV PRN (07:33)
[2020-12-06] MEDS: APIXABAN 5 MG TABLET PO SCH (08:43)
[2020-12-06] MEDS: METOPROLOL TARTRATE 25 MG TABLET PO SCH (08:43)
[2020-12-06] MEDS: PANTOPRAZOLE 40 MG TABLET PO SCH (08:43)
[2020-12-06 11:37] VITALS: BP 127/68
== END 2020-12-06 14:20 | disposition home or self-care (01) ==
LOC: EDBD → EDUNIT# → N.EDINP 16:09 → N.ED 16:09 → SUATTDRO 17:57 → N.EDINP 20:20 → N.TELEN 20:40
PROVIDERS: ADMIT Internal Medicine; ATTEND Student in an Organized Health Care Education/Training Program

== ENCOUNTER 2021-03-12 10:14 | Inpatient (IN) ==
[2021-03-12 11:34] LABS: Basophils % 0.2 % (0.0-0.8); Hematocrit 45.2 VOL% (35.7-47.0); Hemoglobin 13.8 GM/DL (12.0-16.0); Immature Granulocytes % 0.6 %; Immature Granulocytes Absolute 0.03 #; Lymphocytes # 0.5 10*3/uL (1.4-4.0); Lymphocytes % 8.8 % (21.3-54.2); Mean Corpuscular HGB Conc 30.5 GM/DL (32-36); Mean Corpuscular Volume 99.3 FL (87-102); Mean Platelet Volume 12.2 FL (9.6-12.0); Monocytes % 5.5 % (1.7-12.7); Neutrophils % 84.9 % (38.7-73.9); Platelet Count 186 T/CUMM (130-400); Red Blood Count 4.55 MC/CUMM (3.8-5.5); Red Cell Distribution Width 16.8 % (9.3-17.3); White Blood Count 5.4 T/CUMM (4-12)
[2021-03-12] MEDS ORDERED: SODIUM CHLORIDE 0.9% 1,000 ML IV STA ×2 (11:36)
[2021-03-12 11:42] LABS: INR 1.4; PT Patient Result 15.3 SECS (10.5-12.0); Partial Thromboplastin Time 32.3 SECS (23.9-33.8)
[2021-03-12 11:49] LABS: Albumin 2.5 G/DL (3.4-5.0); Bilirubin,Total 1.8 MG/DL (0.20-1.00); Osmolality,Calculated 296.7 MOS/KG (273-304); Potassium 4.2 MMOL/L (3.5-5.1)
[2021-03-12] MEDS ORDERED: cefTRIAXone 1,000 MG in SODIUM CHLORIDE 0.9% 100 ML IV STA (11:59)
[2021-03-12] MEDS ORDERED: PIPERACILLIN/TAZOBACTAM 3,375 MG in SODIUM CHLORIDE 0.9% 100 ML IV STA (12:23)
[2021-03-12 13:07] LABS: Acanthocytes Few; Anisocytosis 1+; Band Neutrophils 53 % (0-10); Burr Cells 2+; Lymphocytes 12 % (20-55); Macrocytosis 1+; Metamyelocytes 8 %; Myelocytes 3 %; Platelet Estimate Normal; Poikilocytosis 1+; Segmented Neutrophils 17 % (50-85); Total Cells Counted 100
[2021-03-12 13:13] LABS: Bilirubin,Urine Negative (Negative); Blood, Urine Negative (Negative); Glucose,Urine (UA) Negative (Negative); Ketones,Urine Negative (Negative); Mucus,Urine Moderate /LPF (Occasional); Nitrite,Urine Negative (Negative); Protein,Urine Negative; RBC,Urine 6 /HPF (0-4); Urine Appearance CLEAR (Clear); Urine Color Yellow (Yellow); Urine Specific Gravity 1.016 (1.001-1.035)
[2021-03-12] MEDS ORDERED: SODIUM CHLORIDE 0.9% 2,000 ML IV STA (13:44)
[2021-03-12] MEDS ORDERED: EPINEPHrine 1 MG/10 ML SYRINGE ONE (13:53)
[2021-03-12] MEDS ORDERED: MORPHINE 2 MG/1 ML SYRINGE IV PRN (14:42)
[2021-03-12] MEDS ORDERED: LORazepam 2 MG/1 ML VIAL IV PRN (14:42)
[2021-03-12] MEDS ORDERED: ETOMIDATE 20 MG/10 ML VIAL IV ONE (14:49)
[2021-03-12] MEDS ORDERED: ROCURONIUM 100 MG/10 ML VIAL IV ONE (14:50)
[2021-03-14 09:06] VITALS: BP 57/45
== END 2021-03-12 15:39 | disposition expired | DRG 951 ==
LOC: EDUNIT# → EDBD → N.ED 10:14 → N.EDINP 14:42
PROVIDERS: ADMIT Internal Medicine; ATTEND Internal Medicine